=== PATIENT | male | born 1965 | race Caucasian/White ===

== ENCOUNTER 2017-10-27 07:34 | Emergency (ER) | payer MEDICAID ==
[~2017-10-27] VITALS: Ht 177.8 cm; Wt 124.7 kg
[2017-10-27 10:59] VITALS: BP 146/97
== END 2017-10-27 10:59 | disposition home or self-care (01) ==
LOC: ED 07:34
PROC: 3E023GC Introduction of Other Therapeutic Substance into Muscle, Percutaneous Approach (ICD-10-PCS; principal; 2017-10-27)
PROC: 2W3AX1Z Immobilization of Right Upper Arm using Splint (ICD-10-PCS; 2017-10-27)
DX: S46.811A Strain of other muscles, fascia and tendons at shoulder and upper arm level, right arm, initial encounter (principal); W01.0XXA Fall on same level from slipping, tripping and stumbling without subsequent striking against object, initial encounter; Y92.9 Unspecified place or not applicable
CPT/HCPCS: J3010; Q0092

== ENCOUNTER 2019-02-11 12:08 | Emergency (ER) | payer OTHER ==
[~2019-02-11] VITALS: Ht 175.3 cm; Wt 118.8 kg
[2019-02-11 12:15] VITALS: Ht 175.3 cm; Wt 118.8 kg
[2019-02-11 15:41] VITALS: BP 157/95
[2019-02-11 15:59] LABS: PLATELET COUNT 254 x10^3mcL (130-400)
[2019-02-11 16:12] LABS: BASOPHIL % 0.5 % (0-2)
[2019-02-11 16:14] LABS: CALCIUM 9.1 mg/dL (8.5-10.1); CHLORIDE SERUM 107 mmol/L (98-107); GFR1 > 60 mL/min; GLUCOSE SERUM 149 mg/dL (74-106); POTASSIUM SERUM 4.1 mmol/L (3.5-5.1); RED CELL DISTRIBUTION WIDTH 15.1 % (11.5-14.5); SODIUM SERUM 143 mmol/L (136-145)
[2019-02-11 16:20] LABS: ALBUMIN 3.7 g/dL (3.4-5.0); ALKALINE PHOSPHATASE 58 U/L (46-116); ALT/SGPT 41 U/L (16-63); AST/SGOT 15 U/L (15-37); BILIRUBIN TOTAL 0.34 mg/dL (0.20-1.00); TOTAL PROTEIN, SERUM 7.2 g/dL (6.4-8.2)
== END 2019-02-11 17:25 | disposition home or self-care (01) ==
LOC: ED 12:08
PROVIDERS: Emergency Medicine
DX: N20.0 Calculus of kidney (principal)
CPT/HCPCS: 36415

== ENCOUNTER 2019-03-09 06:13 | Emergency (ER) | payer OTHER ==
[~2019-03-09] VITALS: Ht 172.7 cm; Wt 120.7 kg
[2019-03-09 06:17] VITALS: Ht 172.7 cm; Wt 120.7 kg
[2019-03-09 07:30] LABS: CALCIUM 8.5 mg/dL (8.5-10.1); CARBON DIOXIDE 28.2 mmol/L (21-32); CHLORIDE SERUM 104 mmol/L (98-107); CREATININE SERUM 1.3 mg/dL (0.7-1.3); GFR1 > 60 mL/min; GLUCOSE SERUM 121 mg/dL (74-106); SODIUM SERUM 139 mmol/L (136-145)
[2019-03-09 07:34] LABS: ALBUMIN 3.7 g/dL (3.4-5.0); ALKALINE PHOSPHATASE 58 U/L (46-116); ALT/SGPT 41 U/L (16-63); AST/SGOT 18 U/L (15-37); LIPASE 99 IU/L (73-393)
[2019-03-09 08:25] LABS: microscopic required? NO
[2019-03-09 09:17] LABS: urine erythrocyte NEGATIVE (NEGATIVE)
[2019-03-09 09:52] LABS: BASOPHIL % 0.1 % (0-2); PLATELET COUNT 233 x10^3mcL (130-400)
[2019-03-09 10:07] LABS: RED CELL DISTRIBUTION WIDTH 15.1 % (11.5-14.5)
[2019-03-09 11:24] VITALS: BP 151/60
== END 2019-03-09 11:24 | disposition home or self-care (01) ==
LOC: ED 06:13
PROVIDERS: Emergency Medicine
DX: N20.2 Calculus of kidney with calculus of ureter (principal); I10 Essential (primary) hypertension; E78.00 Pure hypercholesterolemia, unspecified; E66.01 Morbid (severe) obesity due to excess calories; Z68.41 Body mass index [BMI] 40.0-44.9, adult; Z90.49 Acquired absence of other specified parts of digestive tract
CPT/HCPCS: J1885; J7030